=== PATIENT | female | born 1985 | race African-American/Black ===

== ENCOUNTER 2018-01-04 13:14 | Emergency (ER) | payer OTHER ==
[~2018-01-04] VITALS: Ht 177.8 cm; Wt 101.8 kg
[2018-01-04 17:11] VITALS: BP 130/84
== END 2018-01-04 17:49 | disposition short-term general hospital (02) ==
LOC: TRA 13:14 → EME 13:14 → TRA 17:49
DX: S05.11XA Contusion of eyeball and orbital tissues, right eye, initial encounter (principal); H20.9 Unspecified iridocyclitis; Y04.8XXA Assault by other bodily force, initial encounter; Y92.199 Unspecified place in other specified residential institution as the place of occurrence of the external cause; Y99.0 Civilian activity done for income or pay; Y07.59 Other non-family member, perpetrator of maltreatment and neglect
CPT/HCPCS: 70450; 70480; 99281; 99285; J2405; J7030